=== PATIENT | female | born 1950 | race Caucasian/White ===

== ENCOUNTER 2020-07-07 07:34 | Emergency (ER) | payer MEDICARE, OTHER ==
[~2020-07-07] VITALS: Ht 166.4 cm; Wt 50.0 kg
--- NOTE | 2020-07-07 07:55 | ED.ADGEN ---
Past Medical History Smoking Status: Current Every Day Smoker General Adult EDM: Chief Complaint: CHEST PAIN-NON CARDIAC NATURE HPI: HPI: Patient is a 69-year-old female who arrives ambulatory to the emergency department complaining of chest/epigastric discomfort after eating a hot dog this morning. Patient reports she developed pressure shortly after eating a hot dog at approximately 7 AM. Patient states she experienced nausea and regurgitated which she described as foam. Patient reports this is happened once previously and in both instances occurred with food only. Patient states now she does not have pain. She further states she has not had any previous illness. She does states she did have coronavirus however that was in March of . She has since recovered. She denies any history of shortness of air, diaphoresis and states she is no longer nauseated. She is nontoxic-appearing Review of Systems: Review of Systems: Constitutional: Denies fever or chills. [] Eyes: Denies change in visual acuity. [] HENT: Denies nasal congestion or sore throat. [] Respiratory: Denies cough or shortness of breath. [] Cardiovascular: Reports chest pain. Denies edema. [] GI: Reports nausea, vomiting with epigastric pain. Denies bloody stools or diarrhea. [] : Denies dysuria. [] Musculoskeletal: Denies back pain or joint pain. [] Integument: Denies rash. [] Neurologic: Denies headache, focal weakness or sensory changes. [] Endocrine: Denies polyuria or polydipsia. [] Lymphatic: Denies swollen glands. [] Psychiatric: Denies depression or anxiety. [] Current Medications: Current Medications Medications (Trade) Dose Ordered Sig/Kenny Start Time Stop Time Status Last Admin Dose Admin Info (CONTRAST GIVEN -- Rx MONITORING) 1 each PRN DAILY PRN 07/07/20 09:00 07/09/20 08:59 Iohexol (Omnipaque 300 Mg/ml) 75 ml 1X ONCE 07/07/20 09:00 07/07/20 09:01 DC 07/07/20 09:04 75 ML Allergies: Allergies: Allergies Coded Allergies Type Severity Reaction Last Updated Verified No Known Drug Allergies 07/07/20 No Physical Exam: PE: Constitutional: Well developed, well nourished, no acute distress, non-toxic appearance. [] HENT: Normocephalic, atraumatic, bilateral external ears normal, oropharynx moist, no oral exudates, nose normal. [] Eyes: PERRLA, EOMI, conjunctiva normal, no discharge. [] Neck: Normal range of motion, no tenderness, supple, no stridor. [] Cardiovascular:Heart rate regular rhythm, no murmur [] Lungs & Thorax: Bilateral breath sounds clear to auscultation [] Abdomen: Bowel sounds normal, soft, no tenderness, no masses, no pulsatile masses. [] Skin: Warm, dry, no erythema, no rash. [] Back: No tenderness, no CVA tenderness. [] Extremities: No tenderness, no cyanosis, no clubbing, ROM intact, no edema. [] Neurologic: Alert and oriented X 3, normal motor function, normal sensory function, no focal deficits noted. [] Psychologic: Affect normal, judgement normal, mood normal. [] Current Patient Data: Labs: Laboratory Tests Test 07/07/20 08:00 07/07/20 08:12 White Blood Count 7.5 x10^3/uL (4.0-11.0) Red Blood Count 3.50 x10^6/uL (3.50-5.40) Hemoglobin 12.2 g/dL (12.0-15.5) Hematocrit 36.8 % (36.0-47.0) Mean Corpuscular Volume 105 fL (79-100) H Mean Corpuscular Hemoglobin 35 pg (25-35) Mean Corpuscular Hemoglobin Concent 33 g/dL (31-37) Red Cell Distribution Width 13.1 % (11.5-14.5) Platelet Count 259 x10^3/uL (140-400) Neutrophils (%) (Auto) 64 % (31-73) Lymphocytes (%) (Auto) 22 % (24-48) L Monocytes (%) (Auto) 9 % (0-9) Eosinophils (%) (Auto) 3 % (0-3) Basophils (%) (Auto) 1 % (0-3) Neutrophils # (Auto) 4.8 x10^3/uL (1.8-7.7) Lymphocytes # (Auto) 1.7 x10^3/uL (1.0-4.8) Monocytes # (Auto) 0.7 x10^3/uL (0.0-1.1) Eosinophils # (Auto) 0.2 x10^3/uL (0.0-0.7) Basophils # (Auto) 0.1 x10^3/uL (0.0-0.2) Sodium Level 138 mmol/L (136-145) Potassium Level 3.9 mmol/L (3.5-5.1) Chloride Level 105 mmol/L (98-107) Carbon Dioxide Level 25 mmol/L (21-32) Anion Gap 8 (6-14) Blood Urea Nitrogen 14 mg/dL (7-20) Creatinine 0.8 mg/dL (0.6-1.0) Estimated GFR (Cockcroft-Gault) 71.5 BUN/Creatinine Ratio 18 (6-20) Glucose Level 100 mg/dL (70-99) H Calcium Level 9.2 mg/dL (8.5-10.1) Total Bilirubin 0.2 mg/dL (0.2-1.0) Aspartate Amino Transferase (AST) 12 U/L (15-37) L Alanine Aminotransferase (ALT) 11 U/L (14-59) L Alkaline Phosphatase 45 U/L (46-116) L Troponin I Quantitative < 0.017 ng/mL (0.000-0.055) QL-Dtk-R-Type Natriuretic Peptide 270 pg/mL (0-124) H Total Protein 6.6 g/dL (6.4-8.2) Albumin 3.6 g/dL (3.4-5.0) Albumin/Globulin Ratio 1.2 (1.0-1.7) Lipase 89 U/L (73-393) POC Troponin I 0.00 ng/ml (<0.08) Laboratory Tests 07/07/20 08:00 Laboratory Tests 07/07/20 08:00 Vital Signs: Vital Signs Date Time Temp Pulse Resp B/P (MAP) Pulse Ox O2 Delivery O2 Flow Rate FiO2 07/07/20 10:03 63 16 150/65 (93) 96 Room Air 07/07/20 07:43 98.3 98.3 EKG: EKG: EKG was obtained at 743 hours and revealed a normal sinus rhythm with a ventricular rate of 67 bpm. Intervals are normal and there are no acute ST/T wave changes to denote ischemia. [] Heart Score: HEART Score for Chest Pain: HEART Score for Chest Pain Response (Comments) Value History Slighlty/Non-Suspicious 0 ECG Normal 0 Age > 65 2 Risk Factors 1 or 2 Risk Factors 1 Troponin < Normal Limit 0 Total 3 Risk Factors: Risk Factors: DM, Current or recent (<one month) smoker, HTN, HLP, family history of CAD, obesity. Risk Scores: Score 0 - 3: 2.5% MACE over next 6 weeks - Discharge Home Score 4 - 6: 20.3% MACE over next 6 weeks - Admit for Clinical Observation Score 7 - 10: 72.7% MACE over next 6 weeks - Early Invasive Strategies Radiology/Procedures: Radiology/Procedures: [] Impression: [place] [id number] IMAGING REPORT Signed PATIENT: FAM WELSH ACCOUNT: [id number] : 1950 LOCATION: ER AGE: 69 SEX: F EXAM STATUS: REG ER ORD. PHYSICIAN: ELIO DICKSON DO REASON: Chest pain PROCEDURE: PORTABLE CHEST 1V XR CHEST 1V History: Reason: Chest pain / Spl. Instructions: / History: Comparison: None. Findings: No consolidation or pleural effusion. Normal heart size. No pneumothorax. Postoperative changes lower cervical spine. Impression: 1. No acute cardiopulmonary process. Electronically signed by: Baron Mahmood DO (07/07/2020 8:11 AM) [id number] DICTATED and SIGNED BY: BARON MAHMOOD DO DATE: 07/07/20 [id number] [id number] IMAGING REPORT Signed PATIENT: FAM WELSH ACCOUNT: [id number] : 1950 LOCATION: ER AGE: 69 SEX: F EXAM STATUS: REG ER ORD. PHYSICIAN: ELIO DICKSON DO REASON: Chest pain/dysphagia PROCEDURE: CT CHEST W/CONTRAST CT THORAX W History: Reason: Chest pain/dysphagia / Spl. Instructions: INJ 75ML OMNI 300 / History: Comparison: Chest x-ray 07/07/2020 Technique: CT chest with intravenous contrast. Findings: Pulmonary arteries: No pulmonary embolism identified. Aorta and Great Vessels: No aneurysm of the aortic arch or thoracic aorta is seen. Mild calcifications at the origin of the great vessels and descending aorta. Thyroid: No significant abnormalities. Mediastinum and alison: No mediastinal masses or adenopathy is seen. Esophagus: The visualized esophagus is normal. Heart: The heart is normal in size. There is no pericardial effusion. Moderate coronary artery calcification. Trachea: The visualized tracheobronchial tree is normal. Lungs: Mild emphysema. Dependent atelectatic change. Diffuse mild subpleural senescent reticulation. Pleural Space: There is no pneumothorax or pleural effusion. Upper Abdomen: Limited evaluation of the upper abdomen is unremarkable. Osseous Structures and Soft Tissues: Coarse calcifications in the right greater than left breast. Partially visualized lower cervical fusion. No acute or suspicious osseous lesion. Impression: 1. No pulmonary embolism, aortic aneurysm or aortic dissection. 2. No airspace consolidation. ------ Exposure: One or more of the following individualized dose reduction techniques were utilized for this examination: 1. Automated exposure control 2. Adjustment of the mA and/or kV according to patient size 3. Use of iterative reconstruction technique. Electronically signed by: Pino Starkey MD (07/07/2020 9:35 AM) [facility] DICTATED and SIGNED BY: PINO STARKEY MD DATE: 07/07/20 [id number] 0 Course & Med Decision Making: Course & Med Decision Making Pertinent Labs and Imaging studies reviewed. (See chart for details) The patient remains awake, alert and in no acute distress. Patient is without chest pain currently. She further states that while she is had this twice previously it is involved food both times. While she is negative for any kind of acute cardiac event in the emergency department I advised that she follow-up with her GI physician for EGD to assess for any esophageal pathology with her reported condition. Should she develop any new chest pain of advised her that she return. The patient understands and has agreed to do so. She is nontoxic- appearing and stable for discharge peer Jaswinder Disclaimer: Jaswinder Disclaimer: This electronic medical record was generated, in whole or in part, using a voice recognition dictation system. Departure Departure Impression: Primary Impression: Dysphagia Additional Impression: Atypical chest pain Disposition: 01 DC HOME SELF CARE/HOMELESS Condition: GOOD Referrals: NON,STAFF (PCP) Patient Instructions: Chest Pain (Nonspecific), Dysphagia Problem Qualifiers ELIO DICKSON DO Jul 07, 2020 07:55
--- NOTE | 2020-07-07 08:02 | EKG ---
[facility] [address] [place] [address] Test Date: 2020-07-07 Test Time: 07:43:36 Pat Name: FAM WELSH Department: Room: Gender: F [employer]: : 1950 Requested By: ELIO DICKSON Order Number: [id number] Reading MD: Boni Carias MD Measurements Intervals [place] Rate: 67 P: 69 WV: 146 QRS: 17 QRSD: 78 T: 25 QT: 402 QTc: 428 Interpretive Statements SINUS RHYTHM NON-SPECIFIC ST/T CHANGES Electronically Signed On 07-07-2020 10:54:00 [employer]ANTER by Boni Carias MD
--- NOTE | 2020-07-07 08:14 | RAD ---
XR CHEST 1V History: Reason: Chest pain / Spl. Instructions: / History: Comparison: None. Findings: No consolidation or pleural effusion. Normal heart size. No pneumothorax. Postoperative changes lower cervical spine. Impression: 1. No acute cardiopulmonary process. Electronically signed by: Baron Mahmood DO (07/07/2020 8:11 AM) [id number]
[2020-07-07 08:23] LABS: BASO # 0.1 x10^3/uL (0.0-0.2); BASO % 1 % (0-3); EOS # 0.2 x10^3/uL (0.0-0.7); EOS % 3 % (0-3); HEMATOCRIT 36.8 % (36.0-47.0); HEMOGLOBIN 12.2 g/dL (12.0-15.5); LYMPH # 1.7 x10^3/uL (1.0-4.8); LYMPH % 22 % (24-48); MEAN CORPUSCULAR HEMOGLOBIN 35 pg (25-35); MEAN CORPUSCULAR HGB CONC 33 g/dL (31-37); MEAN CORPUSCULAR VOLUME 105 fL (79-100); MONO # 0.7 x10^3/uL (0.0-1.1); MONO % 9 % (0-9); NEUT # 4.8 x10^3/uL (1.8-7.7); NEUT % 64 % (31-73); PLATELET COUNT 259 x10^3/uL (140-400); RED CELL DISTRIBUTION WIDTH 13.1 % (11.5-14.5); WHITE BLOOD COUNT 7.5 x10^3/uL (4.0-11.0)
[2020-07-07 08:36] LABS: CALCIUM 9.2 mg/dL (8.5-10.1); CREATININE 0.8 mg/dL (0.6-1.0); GFR 71.5; POTASSIUM 3.9 mmol/L (3.5-5.1)
[2020-07-07 08:41] LABS: ALBUMIN 3.6 g/dL (3.4-5.0); ALBUMIN/GLOBULIN RATIO 1.2 (1.0-1.7); TOTAL BILIRUBIN 0.2 mg/dL (0.2-1.0); TOTAL PROTEIN 6.6 g/dL (6.4-8.2)
[2020-07-07] MEDS ORDERED: CONTRAST GIVEN. MC PRN (09:00)
[2020-07-07] MEDS ORDERED: IOHEXOL 300 MG/ML 100ML VIAL. IV ONE (09:00)
--- NOTE | 2020-07-07 09:38 | RAD ---
CT THORAX W History: Reason: Chest pain/dysphagia / Spl. Instructions: INJ 75ML OMNI 300 / History: Comparison: Chest x-ray 07/07/2020 Technique: CT chest with intravenous contrast. Findings: Pulmonary arteries: No pulmonary embolism identified. Aorta and Great Vessels: No aneurysm of the aortic arch or thoracic aorta is seen. Mild calcification s at the origin of the great vessels and descending aorta. Thyroid: No significant abnormalities. Mediastinum and alison: No mediastinal masses or adenopathy is seen. Esophagus: The visualized esophagus is normal. Heart: The heart is normal in size. There is no pericardial effusion. Moderate coronary artery calcif ication. Trachea: The visualized tracheobronchial tree is normal. Lungs: Mild emphysema. Dependent atelectatic change. Diffuse mild subpleural senescent reticulation. Pleural Space: There is no pneumothorax or pleural effusion. Upper Abdomen: Limited evaluation of the upper abdomen is unremarkable. Osseous Structures and Soft Tissues: Coarse calcifications in the right greater than left breast. Par tially visualized lower cervical fusion. No acute or suspicious osseous lesion. Impression: 1. No pulmonary embolism, aortic aneurysm or aortic dissection. 2. No airspace consolidation. ------ Exposure: One or more of the following individualized dose reduction techniques were utilized for thi s examination: 1. Automated exposure control 2. Adjustment of the mA and/or kV according to patient size 3. Use of iterative reconstruction technique. Electronically signed by: Pino Ly MD (07/07/2020 9:35 AM) [facility]
[2020-07-07 10:06] VITALS: BP 145/65
== END 2020-07-07 10:54 | disposition home or self-care (01) ==
LOC: ER 07:34
DX: R07.89 Other chest pain (principal); R13.10 Dysphagia, unspecified; F17.200 Nicotine dependence, unspecified, uncomplicated
CPT/HCPCS: 36415; 71045; 71260; 80053; 83690; 83880; 84484; 85025; 93005; 99285; Q9967